=== PATIENT | female | born 1995 | race Hispanic/Latino ===

== ENCOUNTER 2018-01-30 10:23 | Emergency (ER) | payer MEDICAID, OTHER ==
[2018-01-30 13:30] LABS: APPEARANCE,URINE Clear (CLEAR); BILIRUBIN,URINE Negative (NEGATIVE); COLOR,URINE Yellow (YELLOW); GLUCOSE, URINE (UA) Negative (NEGATIVE); KETONES,URINE Trace mg/dL (NEGATIVE); LEUKOCYTE ESTERASE ,URINE Moderate (NEGATIVE); NITRATE,URINE Negative (NEGATIVE); OCCULT BLOOD,URINE Negative (NEGATIVE); PH,URINE 6.5 (5.0-8.0); PROTEIN,URINE Negative (NEGATIVE)
[2018-01-30 13:33] LABS: HCG,QUAL RESULT NEGATIVE (NEGATIVE)
[2018-01-30 13:51] LABS: BACTERIA,URINE Few /HPF (None Seen); RBC,URINE None Seen /HPF (0-1); TRICHOMONAS,URINE Moderate /LPF (None Seen)
[2018-01-30] MEDS ORDERED: CEFTRIAXONE SODIUM 1 GM ONE (13:55)
[2018-01-30] MEDS ORDERED: LIDOCAINE HCL MPF 1% 5ML VIAL ONE (13:55)
[2018-01-30] MEDS ORDERED: AZITHROMYCIN 250 MG TABLET PO ONE (13:56)
== END 2018-01-30 14:17 | disposition home or self-care (01) ==
LOC: EDH 10:23
DX: A59.9 Trichomoniasis, unspecified (principal); N76.0 Acute vaginitis; A64 Unspecified sexually transmitted disease; Z98.890 Other specified postprocedural states
CPT/HCPCS: 81001; 81025; 87210; 87486; 87797; 96372; 99284; J0696; J3490

== ENCOUNTER 2019-06-13 05:44 | Inpatient (IN) | payer MEDICAID ==
[2019-06-12 16:19] LABS: HEMATOCRIT 29.3 % (36-48); MEAN CORPUSCULAR HEMOGLOBIN 19.1 pg (27.0-33.0); MEAN CORPUSCULAR HGB CONC 27.3 g/dL (32.0-36.0); MEAN CORPUSCULAR VOLUME 70.1 fL (79-99); NUCLEATED RED BLOOD CELLS 0.2 % (0.0-0.19); PLATELET COUNT (AUTO) 119 K/uL (130-400); RED BLOOD CELL COUNT(AUTO) 4.18 MIL/uL (4.00-5.50); RED CELL DISTRIBUTION WIDTH 19.9 % (11.0-15.5); WHITE BLOOD COUNT (AUTO) 11.2 K/uL (4.8-10.8)
[~2019-06-13] VITALS: Ht 157.5 cm; Wt 68.5 kg
[2019-06-13] MEDS ORDERED: CEFAZOLIN SODIUM 1 GM VIAL IVP PRN (06:45)
[2019-06-13] MEDS ORDERED: LACTATED RINGERS 1000ML 1,000 ML IV SCH (06:45)
[2019-06-13 07:03] VITALS: BP 105/63
[2019-06-13] MEDS ORDERED: CALDOLOR 800MG+NS 250ML 250 ML IV ONE (07:34)
[2019-06-13] MEDS ORDERED: METHYLERGONOVINE MALEATE 0.2 MG/1 ML ML ONE (07:35)
[2019-06-13] MEDS ORDERED: TRANEXAMIC ACID 1000MG/10ML ONE (08:33)
[2019-06-13] MEDS ORDERED: CEFAZOLIN SODIUM 1 GM VIAL IVP ONE (08:45)
[2019-06-13] MEDS ORDERED: DEXAMETHASONE SOD PHOSPHATE 10MG/ML 1ML VIAL ONE (08:51)
[2019-06-13] MEDS ORDERED: EPHEDRINE SULFATE 50 MG/ML AMPULE ONE ×2 (08:53→09:15)
[2019-06-13] MEDS ORDERED: MISOPROSTOL 200 MCG TABLET ONE (09:02)
[2019-06-13] MEDS ORDERED: ONDANSETRON HCL 4 MG/2 ML VIAL ONE (09:17)
[2019-06-13] MEDS ORDERED: OXYTOCIN 10 UNIT/1ML 10ML VIAL ONE (09:27)
[2019-06-13] MEDS ORDERED: MEPERIDINE-PF 50 MG/ML SYG IM PRN ×2 (09:45→10:45)
[2019-06-13] MEDS ORDERED: BISACODYL 10 MG SUPP.RECT RC PRN (09:45)
[2019-06-13] MEDS ORDERED: DEXTROSE 5 %-0.45 % NACL 1,000 ML IV PRN (09:45)
[2019-06-13] MEDS ORDERED: PROMETHAZINE HCL 25 MG/ML 1ML AMPULE IM PRN (09:45)
[2019-06-13] MEDS ORDERED: MEASLES/MUMPS/RUBELLA VACCINE, LIVE 0.5 ML/VIAL SQ SCH (09:45)
[2019-06-13] MEDS: IBUPROFEN 800 MG TAB PO SCH ×2 (09:45→17:45)
[2019-06-13] MEDS ORDERED: OXYTOCIN-LR 20 UNITS/1000 ML 1,000 ML IV PRN (09:45)
[2019-06-13] MEDS ORDERED: DIPH,PERTUSS(ACELL),TET VAC/PF 0.5 ML VIAL IM SCH (09:45)
[2019-06-13] MEDS ORDERED: LANOLIN 30GM OINTMENT TP PRN (09:45)
[2019-06-13] MEDS ORDERED: SODIUM CHLORIDE 0.9% 10 ML VIAL IVP PRN (09:45)
[2019-06-13] MEDS ORDERED: DIPHENHYDRAMINE HCL 25 MG CAPSULE PO PRN (09:45)
[2019-06-13] MEDS ORDERED: ACETAMINOPHEN EXTRA STRENGTH 500 MG TABLET PO PRN (09:45)
[2019-06-13 10:45] VITALS: BP 140/99
[2019-06-13] MEDS ORDERED: MEPERIDINE-PF 25 MG/ML SYG IM PRN ×2 (10:45)
[2019-06-13] MEDS ORDERED: PREN-196 PO (11:07)
[2019-06-13] MEDS: ACETAMINOPHEN-CODEINE 300/30MG TAB PO PRN (12:10)
[2019-06-13] MEDS: HYDROCODONE/ACETAMINOPHEN 5/325 MG TAB PO PRN ×2 (14:18→21:55)
[2019-06-13] MEDS ORDERED: ONDANSETRON HCL 4 MG/2 ML VIAL IVP PRN (14:45)
[2019-06-13] MEDS ORDERED: NALOXONE HCL 0.4 MG/1 ML ML IVP PRN ×3 (14:45)
[2019-06-13] MEDS ORDERED: DiphenhydrAMINE HCL 50 MG/ML VIAL IVP PRN (14:45)
[2019-06-13 16:32] VITALS: BP 102/61
[2019-06-13] MEDS: CALDOLOR 800MG+NS 250ML 250 ML IV SCH (17:58)
[2019-06-13 20:00] VITALS: BP 99/67
[2019-06-13] MEDS: DOCUSATE SODIUM 100 MG CAP PO SCH (20:30)
[2019-06-13] MEDS: SIMETHICONE 80 MG TAB.CHEW PO PRN (20:30)
[2019-06-14] VITALS (16 sets, daily range): BP systolic 96–118; BP diastolic 44–80
[2019-06-14] MEDS: IBUPROFEN 800 MG TAB PO SCH ×3 (01:45→17:35)
[2019-06-14] MEDS: CALDOLOR 800MG+NS 250ML 250 ML IV SCH (02:11)
--- NOTE | 2019-06-14 06:00 | NUR ---
PATIENT ACTIVITY MENDOZA CATHETER D/C. PATIENT TOLERATED WELL. ABDOMINAL BINDER PLACED AND EDISON CARE PROVIDED. PATIENT ASSISTED INTO BEDSIDE CHAIR. PATIENT TOLD TO CALL FOR ASSISTANCE WHEN NEEDING TO VOID.
[2019-06-14 07:45] LABS: MEAN CORPUSCULAR HEMOGLOBIN 19.5 pg (27.0-33.0); MEAN CORPUSCULAR HGB CONC 27.6 g/dL (32.0-36.0); MEAN CORPUSCULAR VOLUME 70.5 fL (79-99); NUCLEATED RED BLOOD CELLS 0.1 % (0.0-0.19); PLATELET COUNT (AUTO) 120 K/uL (130-400); RED BLOOD CELL COUNT(AUTO) 2.98 MIL/uL (4.00-5.50); RED CELL DISTRIBUTION WIDTH 20.1 % (11.0-15.5); WHITE BLOOD COUNT (AUTO) 18.1 K/uL (4.8-10.8)
[2019-06-14 08:10] LABS: HEPATITIS Bs ANTIGEN SCREEN P Negative (Negative)
[2019-06-14] MEDS ORDERED: SODIUM CHLORIDE 0.9% 1000ML 1,000 ML IV SCH (08:15)
--- NOTE | 2019-06-14 08:31 | NUR ---
1ST unit of blood started transfusing, witnessed by Brianda Sylvester LVN Addendum: 06/14/19 at 0836 by RAZA ARREGUIN RN Amended: Links added.
[2019-06-14] MEDS: SIMETHICONE 80 MG TAB.CHEW PO PRN ×2 (09:07→21:11)
[2019-06-14] MEDS: DOCUSATE SODIUM 100 MG CAP PO SCH ×2 (09:07→21:11)
[2019-06-14] MEDS: LIDOCAINE 5% TOPICAL PATCH TP SCH (09:09)
[2019-06-14] MEDS: ACETAMINOPHEN-CODEINE 300/30MG TAB PO PRN ×2 (09:09→13:33)
--- NOTE | 2019-06-14 10:01 | NUR ---
ambulating in the hallway in steady gait, bowen dizziness Addendum: 06/14/19 at 1028 by RAZA ARREGUIN RN Amended: Links added.
--- NOTE | 2019-06-14 10:50 | NUR ---
1ST unit of blood transfused, no reactions noted. Addendum: 06/14/19 at 1059 by RAZA ARREGUIN RN Amended: Links added.
--- NOTE | 2019-06-14 11:10 | NUR ---
2ND unit of blood started transfusing, witnessed by Brianda Sylvester LVN Addendum: 06/14/19 at 1116 by RAZA ARREGUIN RN Amended: Links added.
--- NOTE | 2019-06-14 13:36 | NUR ---
2ND unit of blood transfused, no reactions noted. Addendum: 06/14/19 at 1521 by RAZA ARREGUIN RN Amended: Links added.
--- NOTE | 2019-06-14 15:12 | NUR ---
3RD unit of blood started transfusing, witnessed by Brianda Sylvester LVN Addendum: 06/14/19 at 1517 by RAZA ARREGUIN RN Amended: Links added.
--- NOTE | 2019-06-14 17:49 | NUR ---
3RD unit of blood transfused, no reactions noted. Addendum: 06/14/19 at 1756 by RAZA ARREGUIN RN Amended: Links added.
--- NOTE | 2019-06-14 19:30 | NUR ---
PATIENT REQUESTING SUPPOSITORY PATIENT REQUESTING DUCOLAX SUPPOSITORY TO ASSIST IN HAVING A BM. PATIENT TOLD TO CALL WHEN DONE .
[2019-06-14] MEDS: HYDROCODONE/ACETAMINOPHEN 5/325 MG TAB PO PRN (21:13)
--- NOTE | 2019-06-14 21:15 | NUR ---
PATIENT GIVE DUCOLAX PATIENT TOLD TO POSITION ONTO L. LATERAL, DUCOLAX SUPPOSITORY ADMINISTERED. PATIENT TOLD TO REMAIN ON L. LATERAL POSITION FOR AT LEAST 30 MINUTES OR UNTIL FEELING THE URGE TO HAVE A BM. WILL FOLLOW UP IN ONE HOUR TO SEE IF THERE WERE ANY RESULTS.
--- NOTE | 2019-06-14 22:15 | NUR ---
FOLLOW UP POST DUCOLAX SUPPOSITORY PATIENT STATED SUPPOSITORY ASSISTED HER IN HAVING A BM. PATIENT STATED ABDOMINAL RELIEF.
[2019-06-15] VITALS: BP 104/70
[2019-06-15] MEDS: IBUPROFEN 800 MG TAB PO SCH ×2 (01:52→09:16)
[2019-06-15 03:34] VITALS: BP 97/61
[2019-06-15 05:28] LABS: HEMATOCRIT 30.8 % (36-48); MEAN CORPUSCULAR HEMOGLOBIN 22.6 pg (27.0-33.0); MEAN CORPUSCULAR HGB CONC 30.2 g/dL (32.0-36.0); MEAN CORPUSCULAR VOLUME 74.9 fL (79-99); PLATELET COUNT (AUTO) 112 K/uL (130-400); RED BLOOD CELL COUNT(AUTO) 4.11 MIL/uL (4.00-5.50); RED CELL DISTRIBUTION WIDTH 20.6 % (11.0-15.5); WHITE BLOOD COUNT (AUTO) 14.8 K/uL (4.8-10.8)
--- NOTE | 2019-06-15 05:55 | NUR ---
EXIT CARE GIVEN AT HOME INSTRUCTIONS GIVEN TO PATIENT. PATIENT VERBALIZED UNDERSTANDING AND STATED SHE DID NOT HAVE ANY QUESTIONS. DISCHARGE PAPERWORK WITH FOLDER LEFT AT BEDSIDE. PATIENT TOLD TO REVIEW IT AND IF SHE HAD ANY FURTHER QUESTIONS THEN TO ASK BEFORE DISCHARGE.
[2019-06-15 07:33] VITALS: BP 110/65
[2019-06-15] MEDS: SIMETHICONE 80 MG TAB.CHEW PO PRN (09:16)
[2019-06-15] MEDS: LIDOCAINE 5% TOPICAL PATCH TP SCH (09:16)
[2019-06-15] MEDS: DOCUSATE SODIUM 100 MG CAP PO SCH (09:16)
[2019-06-15] MEDS ORDERED: ACET1TAB12 PO (10:11)
[2019-06-15] MEDS ORDERED: IBUP-2077 PO (10:12)
[2019-06-15] MEDS ORDERED: FERR325T22 PO (10:12)
--- NOTE | 2019-06-15 10:20 | NUR ---
verbal and written discharge instructions given, informed of the follow up appointment, prescription given, all questions answered, informed to call the doctor for any concerns, pt voiced understanding to all things discussed Addendum: 06/15/19 at 1034 by RAZA ARREGUIN RN Amended: Links added.
[2019-06-15 11:32] VITALS: BP 100/58
--- NOTE | 2019-06-15 12:15 | NUR ---
pt is dismissed in stable condition, brought to private car via wheelchair by Mecca Sylvesterpcp Addendum: 06/15/19 at 1217 by RAZA ARREGUIN RN Amended: Links added.
== END 2019-06-15 12:15 | disposition home or self-care (01) | DRG 540 ==
LOC: LDH 05:44 → WSH 10:45
PROVIDERS: ADMIT Obstetrics & Gynecology; ATTEND Obstetrics & Gynecology
PROC: 30233N1 Transfusion of Nonautologous Red Blood Cells into Peripheral Vein, Percutaneous Approach (ICD-10-PCS; 2019-06-13)
PROC: 3E0234Z Introduction of Serum, Toxoid and Vaccine into Muscle, Percutaneous Approach (ICD-10-PCS; 2019-06-13)
PROC: 3E0134Z Introduction of Serum, Toxoid and Vaccine into Subcutaneous Tissue, Percutaneous Approach (ICD-10-PCS; 2019-06-13)
PROC: 10D00Z1 Extraction of Products of Conception, Low, Open Approach (ICD-10-PCS; principal; 2019-06-13 08:30)
DX: O34.212 Maternal care for vertical scar from previous cesarean delivery (principal); D50.9 Iron deficiency anemia, unspecified; O99.824 Streptococcus B carrier state complicating childbirth; O99.02 Anemia complicating childbirth; O62.2 Other uterine inertia; Z3A.39 39 weeks gestation of pregnancy; Z37.0 Single live birth; Z23 Encounter for immunization
CPT/HCPCS: 36415; 36430; 59510; 85027; 86592; 86850; 86900; 86901; 86922; 87340; A4344; G0378; J0690; J1100; J1741; J2210; J2405; J2590; J3490; J7030; J7120; P9016

== ENCOUNTER 2022-02-07 20:48 | Emergency (ER) | payer MEDICAID ==
[~2022-02-07] VITALS: Ht 157.5 cm; Wt 56.7 kg
[~2022-02-07 20:48] MED LIST: ACET1TAB12 PO; FERR325T22 PO; IBUP-2077 PO; PREN-196 PO
[2022-02-07 21:58] LABS: BASOPHILS % (AUTO) 0.5 % (0.0-5.0); EOSINOPHILS % (AUTO) 0.7 % (0.0-8.0); HEMATOCRIT 32.6 % (36-48); MEAN CORPUSCULAR HEMOGLOBIN 21.8 pg (27.0-33.0); MEAN CORPUSCULAR HGB CONC 30.1 g/dL (32.0-36.0); MEAN CORPUSCULAR VOLUME 72.6 fL (79-99); NEUTROPHILS % (AUTO) 70.6 % (40.0-77.0); PLATELET COUNT (AUTO) 241 K/uL (130-400); RED BLOOD CELL COUNT(AUTO) 4.49 MIL/uL (4.00-5.50); RED CELL DISTRIBUTION WIDTH 16.9 % (11.0-15.5); WHITE BLOOD COUNT (AUTO) 8.2 K/uL (4.8-10.8)
[2022-02-07] MEDS ORDERED: ONDANSETRON 4MG INJ IVP ONE (22:00)
[2022-02-07 22:01] LABS: APPEARANCE,URINE CLEAR (CLEAR); BILIRUBIN,URINE NEGATIVE (NEGATIVE); COLOR,URINE YELLOW (YELLOW); GLUCOSE, URINE (UA) NEGATIVE (NEGATIVE); KETONES,URINE 20 mg/dL (NEGATIVE); LEUKOCYTE ESTERASE ,URINE NEGATIVE Leu/uL (NEGATIVE); NITRATE,URINE NEGATIVE (NEGATIVE); OCCULT BLOOD,URINE NEGATIVE (NEGATIVE); PH,URINE 5.5 (5.0-8.0); PROTEIN,URINE 10 mg/dL (NEGATIVE)
[2022-02-07 22:08] LABS: CREATININE 0.5 mg/dL (0.5-1.5); POTASSIUM 3.3 mmol/L (3.5-5.1)
[2022-02-07 22:09] LABS: BACTERIA,URINE RARE /HPF (None Seen); MUCUS,URINE RARE LPF (None Seen); SQUAMOUS EPITHELIAL CELL,UR MOD /HPF (0-2)
[2022-02-07 22:34] LABS: ALBUMIN 3.5 g/dL (3.5-5.0); TOTAL PROTEIN, SERUM 8.2 g/dL (6.0-8.3)
[2022-02-07] MEDS ORDERED: POTASSIUM CHLORIDE 10% ELIXIR 20 MEQ/15 ML UDCUP ONE (23:00)
[2022-02-07] MEDS ORDERED: CEFTRIAXONE 1G VIAL IVP ONE (23:00)
[2022-02-07] MEDS ORDERED: CEFTRIAXONE 1G VIAL ONE (23:00)
[2022-02-07] MEDS ORDERED: POTASSIUM BICARB/CIT AC 25 MEQ TABLET.EFF PO ONE (23:00)
[2022-02-07] MEDS ORDERED: CEPH500B PO (23:09)
[2022-02-07] MEDS ORDERED: ONDA4TAB10 PO (23:09)
[2022-02-07 23:15] VITALS: BP 110/64
== END 2022-02-07 23:51 | disposition home or self-care (01) ==
LOC: EDH 20:48
DX: O23.41 Unspecified infection of urinary tract in pregnancy, first trimester (principal); N39.0 Urinary tract infection, site not specified; O99.611 Diseases of the digestive system complicating pregnancy, first trimester; A08.4 Viral intestinal infection, unspecified; Z20.822 Contact with and (suspected) exposure to COVID-19; Z3A.08 8 weeks gestation of pregnancy; Z79.1 Long term (current) use of non-steroidal anti-inflammatories (NSAID)
CPT/HCPCS: 99284; 96374; 87635; 96375; 80053; 84702; 85025; 87804 ×2; 81001; 36415; C9803; J0696; J2405

== ENCOUNTER 2022-10-11 11:35 | Emergency (ER) | payer MEDICAID ==
[~2022-10-11] VITALS: Ht 157.5 cm; Wt 65.3 kg
[~2022-10-11 11:35] MED LIST changes: +CEPH500B PO
[2022-10-11 12:50] VITALS: BP 106/69
[2022-10-11] MEDS ORDERED: KETOROLAC 30MG VIAL (30MG/ML) IM ONE (13:30)
== END 2022-10-11 13:56 | disposition home or self-care (01) ==
LOC: EDH 11:35 → EEVIPCON 11:35 → EDH 13:56
DX: S61.210D Laceration without foreign body of right index finger without damage to nail, subsequent encounter (principal); X58.XXXD Exposure to other specified factors, subsequent encounter
CPT/HCPCS: 99283; 96372; J1885

== ENCOUNTER 2023-11-09 08:13 | Emergency (ER) | payer SELFPAY ==
[~2023-11-09] VITALS: Ht 157.5 cm; Wt 54.4 kg
[2023-11-09 08:54] LABS: APPEARANCE,URINE CLEAR (CLEAR); BILIRUBIN,URINE NEGATIVE (NEGATIVE); COLOR,URINE LIGHT-YELLOW (YELLOW); GLUCOSE, URINE (UA) NEGATIVE (NEGATIVE); KETONES,URINE NEGATIVE (NEGATIVE); LEUKOCYTE ESTERASE ,URINE NEGATIVE Leu/uL (NEGATIVE); MUCUS,URINE RARE LPF (None Seen); NITRATE,URINE NEGATIVE (NEGATIVE); OCCULT BLOOD,URINE NEGATIVE (NEGATIVE); PROTEIN,URINE NEGATIVE (NEGATIVE); SQUAMOUS EPITHELIAL CELL,UR MOD /HPF (0-2); WBC,URINE 0-1 /HPF (0-1)
[2023-11-09 08:56] LABS: HCG,QUALITATIVE URINE NEGATIVE (NEGATIVE)
[2023-11-09] MEDS ORDERED: PRED5TAB PO (09:40)
[2023-11-09] MEDS ORDERED: DIPH-1242 PO (09:40)
[2023-11-09] MEDS: CEFTRIAXONE 1G VIAL IM ONE (09:42)
[2023-11-09] MEDS: METRONIDAZOLE 500 MG TABLET PO SCH (09:43)
[2023-11-09] MEDS: AZITHROMYCIN 250 MG TABLET PO ONE (09:45)
[2023-11-09 09:51] VITALS: BP 122/72; PULSE 91; RESP 16; O2SAT 100
[2023-11-09] MEDS: DEXAMETHASONE SOD PHOSPHATE 4 MG/ML 1ML VIAL IARTIC ONE (09:55)
== END 2023-11-09 10:07 | disposition home or self-care (01) ==
LOC: EDH 08:13
DX: N76.0 Acute vaginitis (principal); Z79.899 Other long term (current) drug therapy
CPT/HCPCS: 99284; 96374; 81001; 81025; 96372; J1100; J0696

== ENCOUNTER 2024-12-13 13:07 | Emergency (ER) | payer BC ==
[~2024-12-13] VITALS: Ht 157.5 cm; Wt 59.0 kg
[~2024-12-13 13:07] MED LIST changes: +DIPH-1242 PO; +PRED5TAB PO
[2024-12-13 14:53] LABS: IMMATURE GRANULOCYTE ABSOLUTE 0.02 K/uL (0-1); NUCLEATED RED BLOOD CELLS 0.0 % (0.0-0.19); PLATELET COUNT (AUTO) 212 K/uL (130-400); RED BLOOD CELL COUNT(AUTO) 4.33 MIL/uL (4.00-5.50); RED CELL DISTRIBUTION WIDTH 18.2 % (11.0-15.5); WHITE BLOOD COUNT (AUTO) 8.0 K/uL (4.8-10.8)
[2024-12-13 15:02] LABS: CREATININE 0.7 mg/dL (0.5-1.0); GLOMERULAR FILTR. RATE CALC 120.0 mL/min (>90); GLUCOSE,RANDOM 100.0 mg/dL (70-105); SODIUM SERUM 138.0 mmol/L (136-145); UREA NITROGEN, BLOOD 8.0 mg/dL (7-18)
[2024-12-13 15:18] VITALS: BP 92/56; PULSE 82; RESP 20; TEMP 97.5; O2SAT 97
--- NOTE | 2024-12-13 16:00 | ERN ---
General Chief Complaint: Vaginal Problems/Bleeding Stated Complaint: VAGINAL BLEEDING Time Seen by MD: 13:26 Time Seen by Midlevel: 13:26 Source: patient History of Present Illness Initial Comments Patient is a 29-year-old female past medical history of chronic anemia presenting to emergency department for evaluation heavy menstrual bleed. Patient reports previous similar episodes in the past. She states her menstrual cycle is regular and normally last one week. She is on day three and reports having vaginal bleeding. She does report a history of severe anemia requiring blood transfusion. Allergies: Coded Allergies: No Known Allergies (Unverified Allergy, Unknown, 06/13/19) Home Meds Active Scripts Diphenhydramine HCl (Benadryl) 25 Mg Cap, 25 MG PO BID for 5 Days, #10 CAP Prov:ROCAEL DEL VALLE MD 11/09/23 Prednisone (Prednisone) 5 Mg Tablet, 5 MG PO DAILY for 5 Days, #5 TAB Prov:ROCAEL DEL VALLE MD 11/09/23 Reported Medications Cephalexin Monohydrate (Keflex) 500 Mg Cap, 500 MG PO [id number] for 10 Days, CAP 09/09/22 Ferrous Sulfate (Ferrous Sulfate) 325 Mg Tablet, 325 MG PO TID, TAB 06/15/19 Ibuprofen (Ibuprofen 800 mg Tab) 800 Mg Tab, 800 MG PO Q6H, TAB 06/15/19 Acetaminophen with Codeine (Tylenol with Codeine #3 Tablet) 1 Each Tablet, 1 TAB PO Q4HPRN PRN for PAIN LEVEL 5 TO 10, TAB 06/15/19 Vit No.124/Iron/FA ( Vitamin Tablet) 1 Each Tablet, 1 EACH PO DAILY, TAB 06/13/19 Past Medical History Past Medical History: Anemia Past Surgical History: Family History Family History: Negative Social History Social History: Lives with family Female( History) : 4 Para: 4 ROS Dictation CONSTITUTIONAL: Negative except for HPI HEAD/FACE: Negative except for HPI EENT: Negative except for HPI RESPIRATORY: Negative except for HPI GASTROINTESTINAL/ABDOMINAL: Negative except for HPI GENITOURINARY: Negative except for HPI MUSCULOSKELETAL: Negative except for HPI INTEGUMENTARY: Negative except for HPI NEUROLOGICAL/PSYCH: Negative except for HPI HEMATOLOGIC/LYMPHATIC: Negative except for HPI All Systems Negative, Except as noted above. 13 point review of systems assessed and all negative except for above. Physical Exam Physical Exam Dictation Vital Signs reviewed General Appearance: Alert, oriented x 3, no acute distress, well developed, nourished. Head and Face: non-traumatic. Eyes: PERRL, pink conjunctivas, eyelid no trauma, anterior chamber with arcus senilis. Ears: Pinnas intact and no signs of trauma or erythema ear canals clear and no discharge TM no erythema Nose: No discharge, no bleeding. Oropharynx: Mouth normal, tongue pink, pharynx clear,no erythema, tonsils no exudates, no abscesses noted, mucous membrane moist Neck: Supple, non-tender, no thyromegaly, no masses, no JVD, no bruits Breast:Deferred Chest:No tenderness, no crepitus, no paradoxical movement, no retractions Lungs:Clear, well-ventilated, symmetric, no rales, no wheezing, no rhonchi, no stridor, good breath sounds bilaterally Heart: Regular rate, regular rhythm, no murmur, no gallops Vascular: no peripheral edema, Abdomen: Soft, positive bowel sounds, nondistended, no guarding, nontender, no rebound, no masses no hepatomegaly, no splenomegaly, no Sears's sign, no hernias. Rectal: Deferred Genital: Deferred Neurological: Normal speech, motor function intact, sensory function intact Musculoskeletal: Neck nontender, full range of motion, back nontender, full range of motion, Extremities: nontender, full range of motion Skin: Color pink, dry, no turgor, no rash, no lacerations, no abrasions, no contusions. Lymphatic: Deferred Results Laboratory and Microbiology Lab and Micro Result Laboratory Tests Test 12/13/24 14:40 White Blood Count 8.0 K/uL (4.8-10.8) Red Blood Count 4.33 MIL/uL (4.00-5.50) Hemoglobin 9.4 g/dL (12.0-16.0) L Hematocrit 32.4 % (36-48) L Mean Corpuscular Volume 74.8 fL (79-99) L Mean Corpuscular Hemoglobin 21.7 pg (27.0-33.0) L Mean Corpuscular Hemoglobin Concent 29.0 g/dL (32.0-36.0) L Red Cell Distribution Width 18.2 % (11.0-15.5) H Platelet Count 212 K/uL (130-400) Mean Platelet Volume 10.8 fL (7.5-10.5) H Immature Granulocyte % (Auto) 0.3 % (0-1) Neutrophils (%) (Auto) 61.7 % (40.0-77.0) Lymphocytes (%) (Auto) 28.0 % (21.0-51.0) Monocytes (%) (Auto) 7.3 % (3.0-13.0) Eosinophils (%) (Auto) 1.8 % (0.0-8.0) Basophils (%) (Auto) 0.9 % (0.0-5.0) Neutrophils # (Auto) 4.9 K/uL (1.8-7.7) Lymphocytes # (Auto) 2.2 K/uL (1.0-4.8) Monocytes # (Auto) 0.6 K/uL (0.1-1.0) Eosinophils # (Auto) 0.14 K/uL (0.00-0.70) Basophils # (Auto) 0.07 K/uL (0.00-0.20) Absolute Immature Granulocyte (auto 0.02 K/uL (0-1) Nucleated Red Blood Cells 0.0 % (0.0-0.19) Red Blood Cell Morphology See comments Sodium Level 138 mmol/L (136-145) Potassium Level 3.6 mmol/L (3.5-5.1) Chloride Level 104 mmol/L (101-111) Carbon Dioxide Level 28 mmol/L (21-32) Blood Urea Nitrogen 8 mg/dL (7-18) Creatinine 0.7 mg/dL (0.5-1.0) Glomerular Filtration Rate Calc 120 mL/min (>90) Random Glucose 100 mg/dL (70-105) Total Calcium 8.9 mg/dL (8.5-10.1) Troponin I High Sensitivity < 4 ng/L (4-50) L Serum Test, Qualitative NEGATIVE (NEGATIVE) Labs Reviewed?: Yes MDM MDM: Patient is a 29-year-old female past medical history of chronic anemia presenting to emergency department for evaluation heavy menstrual bleed. Patient reports previous similar episodes in the past. She states her menstrual cycle is regular and normally last one week. She is on day three and reports having vaginal bleeding. She does report a history of severe anemia requiring blood transfusion. On physical examination the patient is in no acute distress. Vital signs are stable. Patient is not hypotensive and is not tachycardic. Hemoglobin is stable at 9.4. Patient does have a history of chronic anemia. No need for emergent transfusion at this time. Patient will need to follow up with both primary care doctor and OBGYN for further evaluation. Differential diagnosis: Severe anemia, , dysfunctional uterine bleeding There are no social concerns with this patient. Prescription drug management Prescriptions will include: None Medical management and examination interpretation discussions were had by me with other qualified healthcare professionals as indicated for the patient's care. ED Course Orders Procedure Category Date Status Time Cbc With Differential LAB 12/13/24 Complete 14:14 Basic Metabolic Panel LAB 12/13/24 Complete 14:14 Troponin I High LAB 12/13/24 Complete Sensitivity 14:14 12 Lead Ekg Tracing- EKG 12/13/24 Logged Technical 14:14 Testing, LAB 12/13/24 Complete Serum Hcg 14:14 Urinalysis Profile LAB 12/13/24 Logged 14:14 Vital Signs Date Time Temp Pulse Resp B/P (MAP) Pulse Ox O2 Delivery O2 Flow Rate FiO2 12/13/24 15:18 97.5 82 20 92/56 97 Room Air* 0 21 12/13/24 13:10 98.2 103 16 114/69 97 Room Air DX & DISP Disposition: Discharge Departure Impression: Primary Impression: Chronic anemia Condition: Stable Additional Instructions: Your hemoglobin level today was 9.4. Please follow up with your primary care doctor as discussed. If you develop any new or worsening symptoms please report to the ER for further evaluation. Referrals: NELLIE BATISTA NP (PCP) I have reviewed the case, and I agree with, Diagnosis and Plan I performed the substantive portion of the visit. I have reviewed and personally made and approve the management plan that is documented in the note by myself or the KIMBERLY. I acknowledge for responsibility for the patient's management plan. TUTU CAVANAUGH Dec 13, 2024 16:00
--- NOTE | 2024-12-14 03:03 | EKG ---
[facility] Test Date: 2024-12-13 Test Time: 14:20:42 Pat Name: ADI PRATT Department: ED Room: Gender: F Food Management Aide: [id number] : 1995 Requested By: TUTU CAVANAUGH Order Number: [id number] Reading MD: Abilio Sams Measurements Intervals Bee Rate: 84 P: 71 HI: 142 QRS: 32 QRSD: 92 T: 31 QT: 339 QTc: 401 Interpretive Statements Sinus rhythm Low voltage, precordial leads Compared to ECG 11/28/2014 19:58:36 Low QRS voltage now present Electronically Signed On 12-14-2024 13:41:01 CDT by Abilio Sams Please click the below link to view image of tracing.
== END 2024-12-13 16:20 | disposition home or self-care (01) ==
LOC: EDH 13:07
DX: D64.9 Anemia, unspecified (principal); Z79.52 Long term (current) use of systemic steroids; Z79.899 Other long term (current) drug therapy; Z98.890 Other specified postprocedural states
CPT/HCPCS: 36415; 80048; 84484; 84703; 85025; 93005; 99284